=== PATIENT | male | born 1990 | race Hispanic/Latino ===

== ENCOUNTER 2019-09-21 15:54 | Emergency (ER) | payer OTHER | END 2019-09-21 17:45 | disposition home or self-care (01) | LOC: EDH 15:54 | DX: J06.9 Acute upper respiratory infection, unspecified (principal); Z72.0 Tobacco use | CPT/HCPCS: 87804 ==

== ENCOUNTER 2020-01-08 08:27 | Emergency (ER) | payer SELFPAY | END 2020-01-08 09:13 | disposition home or self-care (01) | LOC: EDH 08:27 | DX: J02.9 Acute pharyngitis, unspecified (principal); R13.10 Dysphagia, unspecified; Z72.0 Tobacco use ==